=== PATIENT | male | born 1940 | race Caucasian/White ===

== ENCOUNTER 2017-05-13 06:47 | Inpatient (IN) | payer OTHER ==
[2017-05-12 11:16] LABS: HEMOGLOBIN 15.7 gm/dL (14.0-18.0); MCH 30.8 pg (26.0-34.0); MCHC 34.1 g/dL (28.0-37.0); MCV 90.4 fL (80.0-100.0); RBC 5.08 mil/uL (4.50-6.00); RDW 15.1 % (10.5-14.5); URINE BILIRUBIN NEGATIVE (Negative); URINE BLOOD NEGATIVE (Negative); URINE COLOR YELLOW; URINE GLUCOSE-RANDOM* NEGATIVE (Negative); URINE KETONES NEGATIVE (Negative); URINE LEUKOCYTES-REFLEX NEGATIVE (Negative); URINE PROTEIN (DIPSTICK) TRACE (Negative); WBC 7.9 thou/uL (4.0-11.0)
[2017-05-12 11:32] LABS: APTT 29.9 Seconds (24.5-32.8); PROTIME 10.3 Seconds (9.3-11.4)
[2017-05-12 11:35] LABS: CALCIUM 9.3 mg/dL (8.5-10.1); CREATININE 1.1 mg/dL (0.7-1.3); TOTAL BILIRUBIN 0.5 mg/dL (<0.1-1.0); TOTAL PROTEIN 7.3 g/dL (6.4-8.2)
[~2017-05-13] VITALS: Ht 172.7 cm; Wt 71.2 kg
--- NOTE | ~2017-05-13 | EKG ---
[address] [address] ELECTROCARDIOGRAM REPORT Name: ELIGIO MULLINS Room #: 244-P [facility] IN M.R.#: [id number] Admission: 05/13/17 Attend Phys: Sincere Owens MD Discharge: 05/14/17 Date of : 44 Report #: [id number] THIS REPORT FOR: //name// [facility] Test Date: 2017-05-12 Test Time: 10:38:02 Pat Name: ELIGIO MULLINS Department: Room: 244 Gender: M Paper Sorter: Dwayne NAVA : 1940 Requested By: Sincere Owens Order Number: [id number] : Tobi Sigala Measurements Intervals [place] Rate: 93 P: 64 W[place]: 150 QRS: -50 QRSD: 104 T: 72 QT: 345 QTc: 430 Interpretive Statements Sinus rhythm Left anterior fascicular block LVH with secondary repolarization abnormality Anterior ST elevation, probably due to LVH Compared to ECG 08/05/2011 17:25:57 Left anterior fascicular block now present Early repolarization now present ST (T wave) deviation now present Intraventricular conduction delay no longer present Electronically Signed On 05-18-2017 21:28:07 CDT by Tobi Sigala [email or web address] <ELECTRONICALLY SIGNED> By: Tobi Sigala MD 05/18/17 2128 1038 1038 Tobi Sigala MD /EPI
--- NOTE | ~2017-05-13 | O ---
[facility] [place] [address] OPERATIVE REPORT Name: ELIGIO MULLINS Room #: 244-P [facility] IN ..#: [id number] Admission: 05/13/17 Attend Phys: Sincere Owens MD Discharge: Date of : 42 Report #: [id number] THIS REPORT FOR: //name// CC: Carter Owens DATE OF SERVICE: 05/13/2017 PREOPERATIVE DIAGNOSIS: Left internal carotid artery stenosis, asymptomatic. FINAL DIAGNOSIS: Left internal carotid artery stenosis, asymptomatic. OPERATIVE PROCEDURE PERFORMED: Left internal carotid endarterectomy. SURGEON: Sincere Owens M.D. YARN WINDER: . ANESTHESIA: General. OPERATIVE INDICATIONS: The patient is a 77-year-old gentleman who presented with an asymptomatic left internal carotid artery stenosis. This stenosis was high-grade, approximately 80-90% by angiogram. The patient is admitted at this time now and for left internal carotid endarterectomy after informed consent has been obtained. The patient is asymptomatic. The procedure was performed for stroke risk reduction. OPERATIVE SUMMARY: The patient was brought to the operating room, placed on the OR table in supine position. After anesthesia was induced via the general endotracheal route and monitoring lines have been positioned, the patient was prepped and draped in sterile fashion with chlorhexidine. An oblique incision was made anterior to the sternocleidomastoid muscle. Dissection was carried down medial to the muscle. We identified the facial vein, ligated and divided it. We opened the carotid sheath and dissected free the common internal and external carotid arteries from surrounding tissues. The hypoglossal, vagus, and ansa cervicalis nerves were noted. Care was taken not to injure them during this procedure. The patient was given 10,000 units of intravenous heparin. Approximately 4 minutes later, we clamped the internal carotid artery, then the common and then the external carotid artery. The common carotid arteriotomy was made and extended up into the internal carotid artery. There was a high-grade stenosis with calcific plaque with hemorrhage into the wall of the plaque noted at the origin of the internal carotid artery. We then placed a 14-Puerto Rican shunt at the internal carotid artery with good backbleeding. We placed it into the common carotid artery and snared it down to the common carotid artery with a Rumel tourniquet. The plaque was then dissected from the vessel wall, it was amputated with Griffin scissors proximally. An eversion endarterectomy was [address] [address] OPERATIVE REPORT Name: ELIGIO MULLINS Room #: 244-P [facility] IN .R.#: [id number] Admission: 05/13/17 Attend Phys: Sincere Owens MD Discharge: Date of : 42 Report #: [id number] performed of the external carotid artery and good tapering was noted of the internal carotid artery. All loose fronds were debrided from the vessel wall under loupe magnification and saline irrigation. Once this was completed, the vessel was closed primarily with 6-0 Prolene suture. Prior to completing closure, the shunt was clamped, cut and removed. The site was flushed both retrograde and antegrade and just prior to completing closure was de-aired by releasing the clamp on the external carotid artery. After completing closure, the common carotid clamp was released and then the internal clamp was released. Protamine was given to reverse the heparin. Doppler signals were present and biphasic at all sites, the common, internal and external carotid sites. Once adequate hemostasis was achieved, the wound was closed in multiple layers with absorbable suture. The procedure was completed. The patient was taken to the postanesthesia care unit in stable condition. Neurologic examination is pending at the time of this dictation. <ELECTRONICALLY SIGNED> By: Sincere Owens MD 05/14/17 0933 1538 1602 Sincere Owens MD /nt
[~2017-05-13 06:47] MED LIST: ALLOPURINOL 10100 M2; ASPIRIN EC81 M1 PO; B-100 COMPLEX1 EACH PO; CORGARD PO; EZETIMIBE PO; KLOR-CON M2020 MEQ PO; LIPITOR40 MG PO; MEGARED PLANT-300 MG PO; MULTIVITAMINS PO; NADOLOL 80 MG; NIFEDICAL XL30 MG PO; NITROSTAT0.4 MG SL; PANTOPRAZOLE SO40 M1 PO; PREDNISONE 10 M10 M1; PROAIR HFA8.5 GM IH; SWISH AND SWALLOW PO; SYMBICORT160 MCG/4. IH; TOPAMAX100 MG PO; VALCYTE450 MG; ZETIA10 MG PO; [UNRECOGNIZED DRUG - OTHER]; [UNRECOGNIZED DRUG - OTHER] PO
[2017-05-13 11:00] VITALS: BP 151/88
[2017-05-14] VITALS (8 sets, daily range): BP systolic 89–126; BP diastolic 58–83
[2017-05-14 05:17] LABS: HEMATOCRIT 41.4 % (42.0-52.0); HEMOGLOBIN 13.8 gm/dL (14.0-18.0); MCH 30.7 pg (26.0-34.0); MCHC 33.4 g/dL (28.0-37.0); MCV 91.9 fL (80.0-100.0); RBC 4.51 mil/uL (4.50-6.00); RDW 15.1 % (10.5-14.5); WBC 9.9 thou/uL (4.0-11.0)
[2017-05-14 05:30] LABS: CALCIUM 8.8 mg/dL (8.5-10.1); POTASSIUM 4.7 mmol/L (3.5-5.1)
[2017-05-14] MEDS ORDERED: ASPIRIN325 PO (13:18)
== END 2017-05-14 17:40 | disposition home or self-care (01) | DRG 39 ==
LOC: TBA 06:47 → ICU 06:47 → PRE 06:49 → ICU 17:23
PROVIDERS: Nurse Practitioner; Thoracic Surgery (Cardiothoracic Vascular Surgery)
PROC: 03CK0ZZ Extirpation of Matter from Right Internal Carotid Artery, Open Approach (ICD-10-PCS; principal; 2017-05-13)
DX: I65.21 Occlusion and stenosis of right carotid artery (principal); I10 Essential (primary) hypertension; E78.00 Pure hypercholesterolemia, unspecified; I95.9 Hypotension, unspecified; I25.10 Atherosclerotic heart disease of native coronary artery without angina pectoris; E78.5 Hyperlipidemia, unspecified; J44.9 Chronic obstructive pulmonary disease, unspecified; I73.9 Peripheral vascular disease, unspecified; R00.1 Bradycardia, unspecified; Z90.49 Acquired absence of other specified parts of digestive tract; Z82.49 Family history of ischemic heart disease and other diseases of the circulatory system
CPT/HCPCS: 10204; 50010; 50101; 50386; 50417; 50455; 51301; 56524; 56526; 56527; 56528; 56534; 62110; 62900; 64029; 65020; 65040; 65043; 70005

== ENCOUNTER 2019-05-27 19:55 | Inpatient (IN) | payer OTHER ==
[~2019-05-27] VITALS: Ht 152.4 cm; Wt 70.8 kg
[~2019-05-27 19:55] MED LIST changes: +ASPIRIN325 PO
[2019-05-27 19:56] VITALS: BP 119/78
[2019-05-27 20:12] LABS: BE(vivo) -5.4 mmol/L (-2 to +3); HCO3 16.8 mmol/L (22.0-26.0); pH 7.465 (7.360-7.450)
[2019-05-27 20:15] LABS: PCO2 23.9 mmHg (35.0-45.0)
--- NOTE | 2019-05-27 20:21 | NUR ---
XRAY AT BEDSIDE
[2019-05-27 20:24] LABS: HEMOGLOBIN 9.6 gm/dL (14.0-18.0); RBC 2.81 mil/uL (4.50-6.00)
[2019-05-27] MEDS ORDERED: ZOVIRAX800 MG PO (20:24)
[2019-05-27] MEDS ORDERED: TYLENOL EXTRA500 MG PO (20:25)
[2019-05-27] MEDS ORDERED: VITAMINC500 PO (20:25)
[2019-05-27 20:26] LABS: MCH 34.2 pg (26.0-34.0); MCHC 34.4 g/dL (28.0-37.0); MCV 99.5 fL (80.0-100.0); RDW 29.8 % (10.5-14.5)
[2019-05-27] MEDS ORDERED: BREO ELLIPTA 11 EACH INH (20:26)
[2019-05-27] MEDS ORDERED: DAPSONE100 MG PO (20:26)
[2019-05-27] MEDS ORDERED: DEXAMETHASONE 44 M1 PO (20:30)
[2019-05-27 20:31] LABS: WBC 1.2 thou/uL (4.0-11.0)
[2019-05-27] MEDS ORDERED: IRON325 PO (20:31)
[2019-05-27] MEDS ORDERED: FLOMAX0.4 MG PO (20:31)
[2019-05-27] MEDS ORDERED: GABAPENTIN 100100 MG PO (20:32)
[2019-05-27] MEDS ORDERED: MUCUS ER600 M1 PO (20:33)
[2019-05-27] MEDS ORDERED: MELATONIN5 M1 PO (20:34)
[2019-05-27] MEDS ORDERED: IPRATROPIU0.2 MG/1 M INH ×2 (20:34)
[2019-05-27 20:35] LABS: ANION GAP 13 mmol/L (7-16); BUN 25 mg/dL (7-18); CALCIUM 8.8 mg/dL (8.5-10.1); CHLORIDE 104 mmol/L (98-107); CO2 20 mmol/L (21-32); CREATININE 1.3 mg/dL (0.7-1.3); GLUCOSE 245 mg/dL (74-106); POTASSIUM 3.3 mmol/L (3.5-5.1); SODIUM 137 mmol/L (136-145)
[2019-05-27] MEDS ORDERED: NICOTINE TRANSD21 M1 (20:35)
[2019-05-27] MEDS ORDERED: PROAIR HFA8.5 GM INH (20:36)
[2019-05-27] MEDS ORDERED: SYMBICORT160 MCG/4. INH (20:36)
[2019-05-27] MEDS ORDERED: TOPAMAX 100 MG100 MG PO (20:37)
[2019-05-27] MEDS ORDERED: TYLENOL325 M1 PO (20:37)
--- NOTE | 2019-05-27 20:38 | NUR ---
PATIENT LIVES AT [facility] AND [facility] FOR POST-ACUTE TREATMENT OF THROMBOCYTOPENIA, ACUTE RESPIRATORY FAILURE AND COPD. PER EMS REPORT AND [facility] SBAR: INCREASED RESPIRATIONS AND TREMORS THAT STARTED ON 05/27/19 AND HAVE PROGRESSIVELY WORSENED OVER THE LAST FEW HOURS. NH REPORTS RESPIRATIONS OF 52/MINUTE, PULSE 87, BP 117/68, TEMP 98.8, O2 77% ON NASAL CANNULA (AMOUNT OF OXYGEN WAS NOT LISTED). PER , PATIENT WAS TAKEN TO [facility] FOR BLOOD TRANSFUSION ON 05/25/19 - INSTEAD OF OUTPATIENT, HE WAS ADMITTED. RECEIVED 2 UNITS OF PRBC AND 1 UNIT OF PLATELETS - COMPLETED AFTERNOON OF 05/26/19. WAS DISCHARGED BACK TO ASSISTED. AT THAT TIME, PATIENT'S REPORTS THAT PATIENT IS NORMALLY ALERT AND ORIENTED X 3 AND ABLE TO WALK. REPORTS THAT HE HAS BEEN WEAKER AND NOT FEELING WELL SINCE HIS DISCHARGE YESTERDAY.
[2019-05-27 20:45] LABS: ALBUMIN 2.5 g/dL (3.4-5.0); DIRECT BILIRUBIN 0.3 mg/dL (<0.1-0.3); SGOT 22 U/L (15-37); SGPT 46 U/L (30-65); TOTAL BILIRUBIN 0.7 mg/dL (<0.1-1.0); TROPONIN-I <0.06 ng/mL (<0.06)
--- NOTE | 2019-05-27 20:52 | NUR ---
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 PATIENT WAS SCHEDULED FOR NEXT DOSE OF CHEMO ON 05/18 AND WAS NOT ABLE TO RECEIVE DUE TO DECLINING STATUS.
--- NOTE | 2019-05-27 21:00 | NUR ---
PATIENT IS TAKING CURRENT DOSE OF ACYCLOVIR AND PREDNISONE TO TREAT HEMOPHAGOCYTIC LYMPHOHISTIOCYTOSIS (HLH) - PER
[2019-05-27 21:10] LABS: ABSOLUTE NEUTROPHILS 0.6 thou/uL (1.4-8.2); ATYPICAL LYMPHS 1 %; NUCLEATED RBCS 2 /100WBC
[2019-05-27 21:10] LABS: URINE BILIRUBIN NEGATIVE (Negative); URINE BLOOD NEGATIVE (Negative); URINE CLARITY CLEAR; URINE COLOR YELLOW; URINE GLUCOSE-RANDOM* 2+ (Negative); URINE KETONES NEGATIVE (Negative); URINE LEUKOCYTES-REFLEX NEGATIVE (Negative); URINE NITRITE-REFLEX NEGATIVE (Negative); URINE PROTEIN (DIPSTICK) 1+ (Negative)
[2019-05-27 21:11] LABS: ANISOCYTOSIS 2+; POLYCHROMASIA OCCASIONAL
[2019-05-27 21:12] LABS: HYPOCHROMASIA SLIGHT; MACROCYTES SLIGHT
[2019-05-27 21:15] LABS: PLATELET COUNT 25 thou/uL (150-400)
[2019-05-27 21:30] LABS: CASTS None Seen /LPF (None Seen); CRYSTALS None Seen /LPF (None Seen); SQUAMOUS 0-3 Few /LPF (0-3); URINE RBC None Seen /HPF (0-2); URINE WBC-REFLEX 0-5 Rare /HPF (0-5)
[2019-05-27 21:31] LABS: BACTERIA-REFLEX 1-9 Few /HPF (None Seen)
--- NOTE | 2019-05-27 22:04 | NUR ---
DR. HARO TO BEDSIDE. BLOOD PRESSURE CURRENTLY 83/58, RR 31, HR 135, 97% O2 AFTER BEING PLACED ON BIPAP PER REQUEST TO REDUCE WORK OF BREATHING. RT AT BEDSIDE AT THIS TIME. BIPAP SETTINGS RR 14, 02 100%. NEW ORDERS RECEIVED.
--- NOTE | 2019-05-27 22:44 | NUR ---
RT AT BEDSIDE TO DRAW REPEAT ABG. PATIENT INCONTINENT OF STOOL. LARGE, SOFT BM. CLEANED AND REPOSITIONED FOR COMFORT. COCCYX AREA RED AND EXCORIATED. BARRIER CREAM APPLIED. AT BEDSIDE
[2019-05-27 22:57] LABS: BE(vivo) -6.2 mmol/L (-2 to +3); PCO2 30.7 mmHg (35.0-45.0); PO2 372.5 mmHg (80.0-100.0); pH 7.385 (7.360-7.450); sO2 99.8 % (92.0-98.0)
[2019-05-27 23:49] VITALS: BP 98/61
--- NOTE | 2019-05-27 23:59 | NUR ---
SENT HANDOFF REPORT
[2019-05-28] VITALS (83 sets, daily range): BP systolic 78–122; BP diastolic 34–77
--- NOTE | 2019-05-28 00:52 | NUR ---
TRIED TO CALL REPORT TO ICU WAS TOLD THE NURSE WAS NOT AVAILABLE AT THIS TIME
--- NOTE | 2019-05-28 01:10 | NUR ---
GAVE REPORT TO NADYA RODRIGUEZ IN ICU
--- NOTE | 2019-05-28 06:43 | NUR ---
PATIENT ARRIVED TO THE UNIT FROM THE ED AT APPROXIMATELY 0130. PATIENT ON BIPAP AND VERY TACHYPNIC WITH RR IN THE 40'S. PATIENT IS ORIENTED TO SELF AND SITUATION. PATIENT PLACED ON NEUTROPENIC PRECAUTIONS D/T WBC AT 1.2 AND ALSO PLACED ON SPECIAL CONTACT TO R/O C-DIFF. PATIENT HAS HAD FREQUENT LOOSE, FOUL SMELLING STOOLS AND IS EXCORIATED PERIANALLY. PATIENT HAD LOW-GRADE TEMP WHEN ARRIVING BUT TRENDED DOWN. BP HAS BEEN SOFT BUT MAP REMAINED MOSTLY GREATER THAN 60. PATIENT MONITORED CLOSELY THROUGHOUT THIS SHIFT.
--- NOTE | 2019-05-28 10:22 | NUR ---
Nutrition: pt seen due to dx septic shock however no longer on sepsis protocol per ICU rounds. Admit with neutropenia, fever. Hx lymphoma. On mechanically altered nectar thick liquids diet and was eagerly eating breakfast during visit. Nearly 100% consumed. Pt states appetite is pretty good and voices no weight loss. Orbital wasting. Bedscale weight down 9# from reported UBW. Follow trends for accuracy. Viola anal excoriation documented due to loose stools. Will offer Ensure pudding daily. On MVI, ascorbic acid and ferrous sulfate supplementation. Place as low risk for now.
--- NOTE | 2019-05-28 11:45 | NUR ---
VASCULAR ACCESS NOTE ORDER VERIFIED FOR PICC PLACEMENT. PATIENT CONSENTED TO PROCEDURE. L BASILIC VEIN WIDELY PATENT. PATIENT PREPPED WITH STANDARD STERILE CONDITIONS. LIDOCAINE 1% 3ML GIVEN SUB Q. VEIN CANNULATED WITH ONE ATTEMPT. GUIDEWIRE ADVANCED EASILY. VEIN DILATED. GUIDEWIRE REMOVED INTACT. 5Fr TL PICC TRIMMED TO 45CM. LINE ADVANCED EASILY. LINE ADVANCED TO 41CM INTERNAL AND 4CM EXTERNAL. LINE FLUSHES AND DRAWS EASILY. CXR VERIFICATION FOR PLACEMENT. LINE RELEASED FOR IMMEDIATE USE TO RN. PATIENT TOLERATED PROCEDURE WELL.
[2019-05-28 12:13] LABS: HEMOGLOBIN 8.1 gm/dL (14.0-18.0); MCHC 33.2 g/dL (28.0-37.0); RDW 29.8 % (10.5-14.5)
[2019-05-28 12:14] LABS: HEMATOCRIT 24.3 % (42.0-52.0); MCH 33.9 pg (26.0-34.0); MCV 102.1 fL (80.0-100.0); RBC 2.38 mil/uL (4.50-6.00)
[2019-05-28 12:18] LABS: CALCIUM 8.6 mg/dL (8.5-10.1); CREATININE 1.2 mg/dL (0.7-1.3); MAGNESIUM 2.9 mg/dL (1.8-2.4)
[2019-05-28 12:20] LABS: POTASSIUM 4.3 mmol/L (3.5-5.1)
--- NOTE | 2019-05-28 13:58 | NUR ---
CM ASSESSMENT: CASE OPENED [place] DC PLANNING. CLINICAL INFO REVIEWED. PT ADMITS WITH SEPSIS AND RESP FAILURE, REQUIRING BIPAP 70 % FIO2. PT WITH BIPAP MASK ON AND SLEEPING AT TIME OF ASSESSMENT. CALLED SPOUSE AILYN [phone], LEFT WITH CM CONTACT # AND INTRODUCTION TO CM ROLE. PT CHART WITH FACESHEET FROM [facility] AND VM LEFT FOR FACILITY ADMISSIONS AND DC CUTTER GRINDER TO FAX CLINICAL. SPOKE WITH NURSE CARING FOR PT AT FACILITY. PT THERE DOING SKILLED REHAB SINCE 04/26/19 AFTER DC FROM [facility]. HAS BEEN NON AMBULATORY AND COULD TRANSFER WITH ASSIST OF 1 PRIOR TO RECENT ADMIT TO [facility]. SINCE RETURNING TO SKILLED REHAB, HAS BEEN MAX ASSIST OF 2 FOR TRANSFERS AND DEPENDENT FOR ADLS. FEEDS SELF WITH SET UP. HX LYMPHOMA WITH Q8 WEEK TREATMENTS AND ACCORDING TO DR. ASTUDILLO'S NOTE, HAS BEEN TOO DEBILITATED FOR TREATMENT. WILL FOLLOW TO SPEAK WITH PT AND /OR SPOUSE AND ASSIST WITH COORDINATION OF DC NEEDS. RETURN TO SKILLED REHAB VS OTHER.
--- NOTE | 2019-05-28 14:12 | EKG ---
[address] [place] [address] ELECTROCARDIOGRAM REPORT Name: ELIGIO MULLINS Room #: 241-P ADM IN M.R.#: [id number] Admission: 05/27/19 Attend Phys: Santiago Perez MD Discharge: Date of : 42 Report #: [id number] THIS REPORT FOR: //name// [facility] ED Test Date: 2019-05-27 Test Time: 20:02:09 Pat Name: ELIGIO MULLINS Department: Room: 241 Gender: M Technology Strategist: ALEXANDRA : 1940 Requested By: Bella Jules Order Number: [id number] MD: Lee Blake Measurements Intervals [place] Rate: 139 P: 71 VA: 134 QRS: -37 QRSD: 99 T: 101 QT: 289 QTc: 440 Interpretive Statements Sinus tachycardia Atrial premature complex Left axis deviation Nonspecific intraventricular conduction delay Compared to ECG 05/12/2017 10:38:02 Atrial premature complex(es) now present Electronically Signed On 05-28-2019 14:11:44 CDT by Lee Blake [email or web address] <ELECTRONICALLY SIGNED> By: Lee Blake MD, [facility] 05/28/19 1411 01 01 Lee Blake MD, [facility] /EPI
--- NOTE | 2019-05-28 20:31 | NUR ---
1800-Shift notes Pt has been alert, oriented x 4. On & off bi-pap and NC w/ 5- 6L of oxygen. Pt has tolerated NC w/o distress. Pt's sat was 95 to 98% on NC. Pt has been fed food, soft-mechanical, hear-healthy diet. Pt has had severe tremors on UE, eugene, could not feed himself well. This nurse assisted pt for breakfast and lunch. Pt has had small BM X 3 during this nurse's shift, soft not loose. Pt has had PICC line due to pressor. This nurse initiated pressor around 1013 at 0.5mcg then titrated to 1.5 at 1445. Pt's platelet was down to [address] Perez. Dr. Perez ordered platelet at the end of shift. Pt's spouse called this nurse for update then visited this evening.
[2019-05-29] VITALS (71 sets, daily range): BP systolic 75–145; BP diastolic 31–82
[2019-05-29 04:07] LABS: GLYCOHEMOGLOBIN (HGB A1C) 5.6 % (4.8-5.6)
--- NOTE | 2019-05-29 04:43 | NUR ---
PT RESTING IN BED. SR/ST ON MONITOR. PT HAS BEEN ON BIPAP AT 60% FIO2 MAJORITY OF SHIFT SATS CURRENTLY 99% PT CONTINUES WITH MAINTENANCE IVFs. RECEIVED ONE UNIT OF PLATELETS DURING MY SHIFT AND TOLERATED. PT ON VERY LOW DOSE OF LEVOPHED BUT WILL TRY TO TURN IT OFF AND MONITOR. AM LABS TO BE DRAWN AND REVIEWED.
[2019-05-29 05:35] LABS: HEMATOCRIT 21.9 % (42.0-52.0); HEMOGLOBIN 7.2 gm/dL (14.0-18.0); RBC 2.14 mil/uL (4.50-6.00); WBC 2.8 thou/uL (4.0-11.0)
[2019-05-29 05:37] LABS: MCH 33.9 pg (26.0-34.0); MCV 102.7 fL (80.0-100.0); PLATELET COUNT 36 thou/uL (150-400); RDW 29.3 % (10.5-14.5)
[2019-05-29 05:39] LABS: POTASSIUM 3.5 mmol/L (3.5-5.1)
[2019-05-29 07:08] LABS: ABSOLUTE NEUTROPHILS 2.2 thou/uL (1.4-8.2); ANISOCYTOSIS 2+; MACROCYTES 1+; METAMYELOCYTES 2 %
[2019-05-29 07:09] LABS: HYPOCHROMASIA SLIGHT
[2019-05-29 13:18] LABS: BE(vivo) -8.9 mmol/L (-2 to +3); HCO3 14.8 mmol/L (22.0-26.0); PO2 297.9 mmHg (80.0-100.0); pH 7.404 (7.360-7.450); sO2 99.7 % (92.0-98.0)
[2019-05-29 13:19] LABS: PCO2 24.2 mmHg (35.0-45.0)
[2019-05-29 17:40] LABS: BE(vivo) -7.7 mmol/L (-2 to +3); HCO3 15.5 mmol/L (22.0-26.0); PO2 182.4 mmHg (80.0-100.0); pH 7.429 (7.360-7.450); sO2 99.3 % (92.0-98.0)
[2019-05-29 17:41] LABS: PCO2 23.9 mmHg (35.0-45.0)
--- NOTE | 2019-05-29 17:47 | NUR ---
1200 PT INCREASED BREATHING WORKLOAD AFTER IPV TREATMENT, BIPAP APPLIED, RESP RATE 40-50'S, OXYGEN SAT 99%, BP STABLE, DR. HERMAN PAGED TO UPDATE ON STATUS. 1230 BLOOD GAS RESULTS CALLED TO BATSHEVA, ORDERS RECIEVED. WILL CONTINUE TO MONITOR.
--- NOTE | 2019-05-29 17:52 | NUR ---
PT REMAINED ON BIPAP THROUGHOUT DAY, PT REMAINS ALERT AND ORIENTED AND WANTS CONTINUOUS AGGRESSIVE CARE. WHEN PT ASKED IF HE WOULD WANT TO BE PLACED ON VENTILATOR IF HE NEEDED IT, HE RESPONDED, "IF I NEED IT TO LIVE, I WANT IT." WILL MONITOR CLOSELY.
[2019-05-29 18:53] LABS: HEMOGLOBIN 8.2 gm/dL (14.0-18.0)
[2019-05-29 18:54] LABS: HEMATOCRIT 24.1 % (42.0-52.0)
[2019-05-30] VITALS (24 sets, daily range): BP systolic 94–143; BP diastolic 61–90
--- NOTE | 2019-05-30 05:03 | NUR ---
PT IN BED SLEEP OFF AND ON TONIGHT. PT SR/ST ON MONITOR WITH SOME PVCs/PACs. PT CONTINUES ON BICARB GTT. PT REMAINS ON BIPAP AT 40% WITH IPV TX. PT HAS HAD EPISODES TONIGHT WHERE HE IS BREATHING IN THE 30-40s AND ENCOURAGED TO SLOW BREATHING DOWN, NOT VERY RECEPTIVE TO INSTRUCTIONS. PT ABLE TO COUGH AND THEN RR SEEMS TO NORMALIZE. PT CONTINUES TO NOT WANT TO BE ELECTIVELY INTUBATED. HE DOES APPEAR TO BE FATIGUED BUT ABLE TO ASSIST WITH TURNS FOR CLEANING HIM AFTER HIS BMs. AM LABS TO BE DRAWN AND REVIEWED.
[2019-05-30 05:33] LABS: HEMOGLOBIN 8.2 gm/dL (14.0-18.0); PLATELET COUNT 30 thou/uL (150-400); WBC 3.4 thou/uL (4.0-11.0)
[2019-05-30 05:34] LABS: HEMATOCRIT 24.7 % (42.0-52.0); MCH 32.9 pg (26.0-34.0); MCHC 33.4 g/dL (28.0-37.0); MCV 98.5 fL (80.0-100.0); RDW 29.2 % (10.5-14.5)
[2019-05-30 05:41] LABS: CALCIUM 8.3 mg/dL (8.5-10.1); CREATININE 1.1 mg/dL (0.7-1.3); MAGNESIUM 1.9 mg/dL (1.8-2.4)
--- NOTE | 2019-05-30 15:37 | HC ---
[facility] [place] [address] CONSULTATION Name: ELIGIO MULLINS Room #: 241-P ADM IN M.R.#: [id number] Admission: 05/27/19 Attend Phys: Santiago Perez MD Discharge: Date of : 42 Report #: [id number] THIS REPORT FOR: //name// CC: Santiago Gomez This note is to Dr. Broussard. REASON FOR CONSULTATION: History of lymphoma and pancytopenia. HISTORY OF PRESENT ILLNESS: The patient is a 79-year-old gentleman whom I had seen in the past with history of non-Hodgkin's lymphoma, who required a transplant, but I have not seen for over a year. Unfortunately, he cannot tell me the names of his doctors or his diagnosis. I tried calling his , it went to [employer] which said that it does not work, not to leave a message, tried calling the daughter who answered the phone, but did not know information and said that she just talk with her mother. I called the mother soon again and again, no answer. I have now left the message on the chart and asked the nurse to try to get the names of the patient's treating cancer doctors from the patient's family and obtain records from the chart, so we can have a better understanding of his history of pancytopenia and his lymphoma. The patient reportedly had a history of transfusion, recently became short of breath and weak, had resides in assisted living and was brought to the hospital because he has been declining since then. He has not been home since April. He supposedly has a diagnosis of something called CS-30, which I do not recognize and he received some infusions, but I am not sure what that refers to. PAST MEDICAL HISTORY: Notable for the history of lymphoma in 2010, had a bone marrow transplantin 2011, and was then in remission. Then, in 2016, he had a non-Hodgkin's lymphoma again, had chemo for 8 weeks. 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 He also has a history of COPD and also some vasectomy and an appendectomy. Outside physicians include Dr. Jae Rodriguez and Dr. Markus Ruff. Sleep apnea. PHYSICAL EXAMINATION: GENERAL: The patient appears stated age. Weight is 146 pounds, 66.2 kilograms, height is 5 feet 7 inches or I believe it is 152 cm what they collect that, blood pressure 91/56, O2 sat 98%, pulse 101, temperature 98.8. He was originally not very responsive on CPAP, then he was able to wake up. He answered a few questions, but he has a very dry mouth and does not seem to know much information about his diagnosis and current health situation. LUNGS: Have some slight rhonchi that clear with cough. HEART: Appears regular rate. [facility] [address] [place] [address] CONSULTATION Name: ELIGIO MULLINS Room #: 241-P [facility] IN M.R.#: [id number] Admission: 05/27/19 Attend Phys: Santiago Perez MD Discharge: Date of : 42 Report #: [id number] ABDOMEN: No masses. LYMPHATICS: No enlarged lymph nodes in supraclavicular or cervical region. LABORATORY DATA: Here is notable for creatinine of 1.3, AST 22, total bilirubin 0.7. White count of 1.2, hemoglobin 9.6, platelets of 25. Differential had 43 bands, 49% lymphocytes, 4 monocytes, 2.2 eosinophils, 0.9 basos. ASSESSMENT AND PLAN: 1. Pancytopenia, may be related to bone marrow disorder. I do not have records. The patient cannot provide information. Family not available. We will ask the nurses to talk with family and get records. I agree with current plans to transfuse to keep hemoglobin above 7, platelets above 15 or 20, less bleeding, white count, neutropenic precautions, antibiotics. 2. Sleep apnea. BiPAP. 2a. 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 will check with office and Dr. Rodriguez for addtional information and clarification. histio 3. Chronic obstructive pulmonary disease, inhalation. Medicines per others. 4. Hyperlipidemia, statins as per others. 5. Prognosis is probably poor to guarded. Need to get clarification of the patient's diagnosis. MEDICATIONS: Currently Include levofloxacin, melatonin, topiramate 100 daily, nicotine 21 mg patch, guaifenesin 600 b.i.d., gabapentin 100 t.i.d., tamsulosin 0.4 daily, iron sulfate 325 b.i.d., vitamin C 500 b.i.d., multivitamins daily, insulin sliding scale, hydrocortisone 100 mg q.8, Zosyn 3.375 q. 8, ipratropium and albuterol inhalation therapy, norepinephrine drip as needed. We will follow with you. <ELECTRONICALLY SIGNED> By: Neel Black MD 05/30/19 1537 0822 1006 Neel Black MD /nick
[2019-05-31] VITALS (21 sets, daily range): BP systolic 112–141; BP diastolic 70–89
--- NOTE | 2019-05-31 07:30 | NUR ---
END OF SHIFT SUMMARY: Pt titrated from 4 L to 2 L nasal canula over this shift. Able to sleep through most of shift. Incontinent of moderate amount soft unformed brown stool x1. Skin integrity remains intact.
[2019-05-31 08:16] LABS: MCV 97.5 fL (80.0-100.0); WBC 2.9 thou/uL (4.0-11.0)
[2019-05-31 08:18] LABS: CALCIUM 8.3 mg/dL (8.5-10.1); CREATININE 1.3 mg/dL (0.7-1.3); HEMATOCRIT 25.7 % (42.0-52.0); HEMOGLOBIN 8.7 gm/dL (14.0-18.0); MCH 33.2 pg (26.0-34.0); MCHC 34.1 g/dL (28.0-37.0); RBC 2.63 mil/uL (4.50-6.00); RDW 27.4 % (10.5-14.5)
--- NOTE | 2019-05-31 15:22 | NUR ---
PT RESIDES AT [facility] FAXED CLINICALE UPDATE TO FACILITY SPOKE WITH SUNG IN ADM SHE RECEIVED UPDATE. DCP TO FOLLOW.
[2019-06-01] VITALS (11 sets, daily range): BP systolic 118–158; BP diastolic 62–98
--- NOTE | 2019-06-01 02:29 | NUR ---
REVIEWED ORDER MESSAGE FROM DR ÁLVAREZ REGARDING PT'S CODE STATUS. PT STATED HE WAS ONLY ABLE TO TALK TO HIS FOR A SHORT TIME YESTERDAY REGARDING CODE STATUS AND POC. PT WANTS TO DISCUSS FURTHER WITH BEFORE MAKING A DECISION.
--- NOTE | 2019-06-01 05:00 | NUR ---
ASSUMED PT CARE AROUND 1900. A&OX2-3, FORGETFUL. DENIES ANY PAIN. PT SLEPT MOST OF THE NIGHT. RESP EVEN AND UNLABORED. VSS. REPOSITIONED TO PREVENT SKIN BREAKDOWN. JOHNSON TO DD WITH ADEQUATE URINE OUTPUT. NO MAJOR COMPLAINTS THIS SHIFT. FALL PRECAUTIONS IN PLACE. PROGRESSING SLOWLY TOWARD POC GOALS. WILL CONTINUE TO MONITOR FURTHER.
--- NOTE | 2019-06-01 06:46 | NUR ---
RECEIVED REPORT FROM BABYSITTER NATALIE AT 0615. PT TRANSPORTED BY BED WITH TRANSPORT MONITOR AND 2L O2. IN STABLE CONDITION BY TRANSPORT TO ROOM 364. PLACED ON HEART MONITOR, 2L O2 ELIZABETH CHRISTIE TO DEPENDENT DRAINAGE. IV ABX INFUSING TO LEFT PICC. NO OTHER CONCERNS, WILL CONTINUE TO MONITOR.
--- NOTE | 2019-06-01 06:51 | NUR ---
REPORT CALLED TO RN ON 3W. PT TRANSFERED TO CCT UNIT AROUND 0630. ALL BELONGINGS SENT WITH PT. PT'S CALLED TO BE NOTIFIED OF PT TRANSFER TO NEW ROOM.
[2019-06-01 09:32] LABS: HEMATOCRIT 28.9 % (42.0-52.0); HEMOGLOBIN 9.9 gm/dL (14.0-18.0); MCH 33.4 pg (26.0-34.0); MCHC 34.2 g/dL (28.0-37.0); MCV 97.5 fL (80.0-100.0); RBC 2.96 mil/uL (4.50-6.00); RDW 27.6 % (10.5-14.5); WBC 3.2 thou/uL (4.0-11.0)
[2019-06-01 09:43] LABS: ALBUMIN 1.5 g/dL (3.4-5.0); CALCIUM 6.5 mg/dL (8.5-10.1); TOTAL BILIRUBIN 0.4 mg/dL (<0.1-1.0); TOTAL PROTEIN 3.7 g/dL (6.4-8.2)
[2019-06-01 10:02] LABS: POTASSIUM 2.5 mmol/L (3.5-5.1)
[2019-06-01 12:08] LABS: HEMATOLOGY COMMENTS Note: (()); HEMOGLOBIN 8.1 g/dL (13.0-17.7)
[2019-06-01 13:53] LABS: ABSOLUTE NEUTROPHILS 2.8 thou/uL (1.4-8.2)
--- NOTE | 2019-06-01 15:56 | NUR ---
FALL PREC IN PLACE...WORKING WITH PT/OT/ST TODAY...UP WITH WALKER.GAIT BELT/O2 NEEDS TO BE REMINDED TO STAND UP STRAIGHT..
[2019-06-02 05:04] LABS: HEMOGLOBIN 8.9 gm/dL (14.0-18.0); WBC 3.2 thou/uL (4.0-11.0)
[2019-06-02 05:09] LABS: HEMATOCRIT 26.3 % (42.0-52.0); MCH 33.7 pg (26.0-34.0); MCHC 33.8 g/dL (28.0-37.0); MCV 99.4 fL (80.0-100.0); RBC 2.64 mil/uL (4.50-6.00); RDW 27.5 % (10.5-14.5)
[2019-06-02 05:20] LABS: CALCIUM 8.3 mg/dL (8.5-10.1); CREATININE 1.2 mg/dL (0.7-1.3); MAGNESIUM 1.6 mg/dL (1.8-2.4)
[2019-06-02 05:23] LABS: POTASSIUM 4.1 mmol/L (3.5-5.1)
--- NOTE | 2019-06-02 06:31 | NUR ---
PLATELETS THIS AM CONSISTENT WITH PREVIOUS RESULTS.
--- NOTE | 2019-06-02 07:46 | NUR ---
PLATELETS 17 THIS AM, NOTED HEMATURIA EVEN AFTER LAYING STILL IN THE BED. NOTIFIED PROVIDER OF FINDINGS. DID NOT REMOVE THE PICC LINE AT THIS TIME.
[2019-06-02 07:47] VITALS: BP 154/98
[2019-06-02 10:11] VITALS: BP 128/84; BP 139/86
--- NOTE | 2019-06-02 10:49 | NUR ---
PATIENT SEEN BY NEO DIXON NP WITH DR. ALMENDAREZ. PATIENT IS NOT A CANDIDATE FOR ACUTE REHAB AT THIS TIME. PATIENT WOULD NOT BE ABLE TO TOLERATE THE REQUIRED AMOUNT OF THERAPY FOR AN ACUTE REHAB STAY. THANK YOU FOR THIS REFERRAL.
--- NOTE | 2019-06-02 12:17 | NUR ---
DISCHARGE PLANNING. CLINICAL UPDATES FAXED TO [facility]. CALL PLACED TO SUNG TO NOTIFY. FOLLOWING TO ASSIST WITH DISCHARGE NEEDS. FOLLOWING.
--- NOTE | 2019-06-02 13:30 | NUR ---
YANA reviewed chart and spoke with nursing and attending physician. Pt transferred to 3W from ICU and is slowly progressing towards goals for discharge. Hem/Onc sent message to YANA to request visit with Hospice. YANA received message from Prosper with [facility] regarding pt. YANA met with pt at bedside. Pt states that he is agreeable with doing either skilled at [facility] or considering hospice. YANA spoke with Prosper with [facility] via phone. Explained that pt and family have not yet decided on hospice. Prosper was given pt's info from Nakia at [facility]. YANA spoke with pt's via phone to provide update. Pt's stated she received call from Prosper and she is not interested in [facility]. Pt's states that she felt pressured to make a decision. [facility] is owned by [employer] who owns [facility]. Pt's states she would be open to meeting with Hospice or [facility] if recommended. Pt's mother in law currently private duty services through [employer]. Pt's states that if the physicians feel that pt can tolerate rehab in a SNF, they would want to consider SNF placement prior to considering hospice. [facility] and family making a decision about hosp[facility]. YANA explained that a referral will not be made to a hospice agency until there has been a decision made with pt and family. YANA updated nursing and attending physician. ID consulted today. service planner to send clinical/therapy updates to [facility] for review. YANA is follwoing to assist as needed with discharge planning.
[2019-06-02 15:44] VITALS: BP 151/92
--- NOTE | 2019-06-02 19:00 | NUR ---
THIS RN AND JESSENIA RN WERE IN ROOM AT SHIFT CHANGE AND SPOUSE STATED THAT PATIENT AND SHE HAD DECIDED TO BECOME A DNR. KARMA GUERRERO CALLED AND ORDERS OBTAINED..
--- NOTE | 2019-06-02 19:52 | NUR ---
DURING SHIFT REPORT WITH OFF-GOING DAY RN, PT'S STATED PT DID NOT WANT TO BE INTUBATED OR HAVE CHEST COMPRESSIONS; BOTH AND PT AGREED HE SHOULD BE CHANGED TO DNR STATUS. NOTIFIED OVERNIGHT NURSE PRACTIONER FAMILY PHYSICIAN.
[2019-06-02 20:11] VITALS: BP 153/97
[2019-06-03 05:25] VITALS: BP 141/83
[2019-06-03 05:34] LABS: HEMOGLOBIN 8.9 gm/dL (14.0-18.0)
[2019-06-03 05:36] LABS: HEMATOCRIT 26.1 % (42.0-52.0); MCH 33.9 pg (26.0-34.0); MCV 99.6 fL (80.0-100.0); RBC 2.62 mil/uL (4.50-6.00); RDW 27.3 % (10.5-14.5); WBC 4.9 thou/uL (4.0-11.0)
--- NOTE | 2019-06-03 07:49 | NUR ---
ASSUMED CARE AT 1900. PT WITH FLAT AFFECT, A&Ox2-3 AND SOMEWHAT DELAYED WITH RESPONSES. DENIES PAIN, NAUSEA, OR SOB. LUNG SOUNDS COARSE WITH SOME CRACKLES IN BASES, 2L O2 VIA NC. IV ABX GIVEN VIA PICC LINE. JOHNSON DRAINING LARGE AMOUNT OF DARK YELLOW AND BLOODY URINE, 1100 ML OUT OVERNIGHT. SR ON TELE. HS BLOOD SUGAR 240, GAVE 10 UNITS LISPRO. NO OTHER CONCERNS, SHIFT REPORT GIVEN AT 0700.
[2019-06-03 08:03] VITALS: BP 188/112
[2019-06-03 08:04] VITALS: BP 172/110
--- NOTE | 2019-06-03 11:19 | NUR ---
Followup: Lymphoma. Code status has been changed to DNR with pending decision for hospice vs other. Continues on modified diet as tolerated. Defer further nutrition reassessment unless consulted.
[2019-06-03 11:48] VITALS: BP 137/89
--- NOTE | 2019-06-03 15:19 | NUR ---
SW reviewed chart and spoke with nursing and attending physician. Pt's code status changed to DNR yesterday. SW spoke with pt's via phone to discuss discharge plan: SNF v. Hospice. Pt's is wanting pt to go to [facility] to try to get stronger, before considering hospice. SW explained need for insurance authorization for pt to return to SNF. Pt's verbalized understanding. conservation planner faxed clinical updates to [facility]. YANA is following to assist as needed with discharge planning.
[2019-06-03 15:58] VITALS: BP 149/96
[2019-06-03 19:15] VITALS: BP 139/86
--- NOTE | 2019-06-03 19:54 | HC ---
[facility] [place] [address] CONSULTATION Name: ELIGIO MULLINS Room #: 364-P [facility] IN M.R.#: [id number] Admission: 05/27/19 Attend Phys: Santiago Perez MD Discharge: Date of : 44 Report #: [id number] THIS REPORT FOR: //name// CC: Santiago Gomez DATE OF SERVICE: 06/02/2019 INFECTIOUS DISEASE CONSULTATION REASON FOR CONSULTATION: I was asked to evaluate concerning pneumonia in the setting of pancytopenia and lymphoma. HISTORY OF PRESENT ILLNESS: The patient is a 79-year-old who was admitted on 05/27/2019 with pulmonary infiltrates, respiratory failure. He has had issues with pancytopenia. He has recently, prior to his admission, received 2 units of blood transfusion. Prior to this, he was hospitalized with pneumonia and respiratory failure, required intubation and mechanical ventilation, first part of April. He has been on treatment for his B-cell lymphoma. Following his admission, he was placed on Levaquin and Zosyn. No positive cultures reported. He is now out of the Intensive Care Unit, uses BiPAP as needed and is on 3 liters of oxygen per nasal cannula. He remains markedly fatigued and having minimal sputum production. No pleuritic chest pain or hemoptysis. He also has an indwelling Rosario catheter, is having some blood in the urine. He remains thrombocytopenic with a platelet count of 17,000. He has been seen by Oncology who is debating about further treatment options. He was recommending palliative care. The patient, however, does not know much about this at this point. He did state to me and his that he did not wish to have cardiac resuscitation or be placed on the ventilator. ALLERGIES: None known. MEDICATIONS: As noted on his MAR, which were reviewed including Levaquin and Zosyn. PAST MEDICAL HISTORY: Appendectomy, vasectomy, cardiac catheterization with stents, hyperlipidemia, long-term smoker with COPD initially diagnosed with T-cell lymphoma, 2010. Now reports his B-cell lymphoma from previous bone marrow biopsy. Tonsillectomy, coronary artery disease, degenerative spine disease, Port-A-Cath in right chest. FAMILY HISTORY: Noncontributory. SOCIAL HISTORY: Smoker of cigarettes. No significant alcohol intake. He is . [address] [address] CONSULTATION Name: HARPREETELIGIO Lucille Room #: 364-P [facility] IN M.R.#: [id number] Admission: 05/27/19 Attend Phys: Santiago Perez MD Discharge: Date of : 44 Report #: [id number] REVIEW OF SYSTEMS: The patient has a Port-A-Cath in place. He has 3 liters of oxygen per nasal cannula. Indwelling Rosario catheter. No decubiti noted. He has had issues with peripheral edema. No rashes or ulcerations. No psychiatric issues or other neurologic decline other than confusional state given his acute presentation. Full 10-point review of systems was otherwise negative other than what is discussed above. PHYSICAL EXAMINATION: VITAL SIGNS: Afebrile and hemodynamically stable. GENERAL: He was sitting up in his chair on 3 liters of oxygen per nasal cannula. He had alopecia. SKIN: Without rash or decubitus. HEENT: Eyes, without scleral icterus. No peripheral adenopathy palpable. Mouth without mucositis. NECK: Supple. LUNGS: Decreased breath sounds in the bases bilaterally. HEART: Regular, without murmur, gallop or rub. ABDOMEN: Soft, without hepatosplenomegaly or mass. EXTREMITIES: With 2+ edema both lower extremities. Strength in both upper and lower extremities were symmetrical. He has overall generalized weakness. Sensation intact in upper and lower extremities. NEUROLOGIC: Mood was normal. He was hard of hearing. GENITORECTAL: Noted indwelling Rosario catheter without specific lesion. LABORATORY STUDIES: Hemoglobin 8.9, white count 3.2, platelet count 17,000. Creatinine 1.2. Sputum culture with yeast. Blood cultures are negative. Chest x-ray with mild elevation of left hemidiaphragm, bilateral interstitial opacities with patchy pneumonia, medial left lung base. IMPRESSION: 1. Diffuse large B-cell lymphoma, which appears end-stage. 2. Sepsis due to pneumonia. 3. Neutropenic fever. 4. Encephalopathy. 5. Chronic obstructive pulmonary disease. 6. Acute kidney injury. 7. Anemia and thrombocytopenia. 8. Transient methemoglobinemia due to dapsone, now resolved. RECOMMENDATIONS: We will continue current antibiotic program, pending final culture results. Before I make any significant changes, we will await Dr. Black's discussion with family regarding palliative care. <ELECTRONICALLY SIGNED> By: Clinton Ga MD 06/03/191953 04 8 lCinton Ga MD /nt
--- NOTE | 2019-06-03 19:55 | NUR ---
care of pt assumed this am @ ~0700. pt noted to be gentle spirit, soft spoken and slightly hard of hearing (listens to his tv w/ loud volume). pt verbalize that he felt tired today, attributing it to a poor night's sleep. pt w/ a fair appetite for food and fluid today. pt worked w/ pt and ot today and was up in his chair for lunch (~ 3-4 hours before requesting to go back to bed). pt w/ a bianchi that is draining, functional and w/o concerns. iv team requesting to know from dr. hernandez what platelets need to be at to dc the picc line tomorrow. no visitors today.
[2019-06-04 03:58] VITALS: BP 156/94
--- NOTE | 2019-06-04 05:56 | NUR ---
PATIENT ALERT AND ORIENTED X PERSON, PLACE AND SOMETIMES SITUATION. JOHNSON PATENT BLOOD TINGED URINE. UP TO BSC WITH ASSIST OF 2. HAS PICC IN [facility]. ACCUCHECK WAS 228, RECEIVED 10 UNITS OF LISPRO INSULIN. DENIED PAIN ALL NIGHT. SLEPT OFF AND ON DURING NIGHT.
[2019-06-04 07:27] VITALS: BP 162/97
[2019-06-04 09:41] LABS: WBC 6.8 thou/uL (4.0-11.0)
[2019-06-04 09:42] LABS: HEMATOCRIT 33.2 % (42.0-52.0); MCH 33.5 pg (26.0-34.0); MCHC 33.1 g/dL (28.0-37.0); MCV 101.1 fL (80.0-100.0); RBC 3.29 mil/uL (4.50-6.00); RDW 27.6 % (10.5-14.5)
[2019-06-04 10:27] LABS: ABSOLUTE NEUTROPHILS 5.6 thou/uL (1.4-8.2); PLATELET COUNT 41 thou/uL (150-400)
[2019-06-04 10:28] LABS: ANISOCYTOSIS 2+; PLATELET ESTIMATE DECREASED
[2019-06-04] MEDS ORDERED: LEVAQUIN 500 M500 M4 PO (11:13)
[2019-06-04] MEDS ORDERED: MAG6464 MG PO (11:14)
[2019-06-04] MEDS ORDERED: K-DUR 20 MEQ T20 MEQ PO (11:14)
[2019-06-04] MEDS ORDERED: [UNRECOGNIZED DRUG - CODE] IV PUSH (11:16)
[2019-06-04 11:18] VITALS: BP 136/89
[2019-06-04] MEDS ORDERED: PREDNISONE 10 M10 MG PO (11:39)
[2019-06-04 15:28] VITALS: BP 158/92
--- NOTE | 2019-06-04 16:54 | NUR ---
ASSUMED CARE OF PATIENT AT 0700. PRIMARY OBJECTIVE WITH PATIENT TODAY WAS DISCHARGE PENDING CLEARANCE WITH INSURANCE. PATIENT HAD BLOOD WORK, URINE CULTURES, AND NASOPHARYNGEAL SWAP/CULTURES. ONLY FINDING WAS INCREASED HEMOGLOBIN TO 11.
--- NOTE | 2019-06-04 17:37 | NUR ---
YANA reviewed chart and spoke with nursing and attending physician. Pt is medically stable for discharge to [facility] today. YANA updated Karo at [facility]. Authorization obtained late today. [facility] can admit pt tomorrow at 1000. Wheelchair van transportation to be arranged with [employer]. YANA met with pt and at bedside to provide update. Both are aware and agreeable with plan. manufacturing planner faxed discharge orders/summary to [facility]. Nursing updated as well. Chart will need to be copied. No additional SW needs identified at this time, but is available to assist should needs arise.
[2019-06-04 19:17] VITALS: BP 137/97
--- NOTE | 2019-06-05 01:38 | NUR ---
resting quietly tonight. he sat up in the chair until 2099. no complaints and he has been more cooperative. careplan reviewed. he is expecting to goback to his facility 06/05
[2019-06-05 04:04] VITALS: BP 148/92
[2019-06-05 07:46] LABS: WBC 7.2 thou/uL (4.0-11.0)
[2019-06-05 07:47] LABS: HEMATOCRIT 27.3 % (42.0-52.0); MCHC 32.7 g/dL (28.0-37.0); PLATELET COUNT 30 thou/uL (150-400); RDW 27.4 % (10.5-14.5)
[2019-06-05 07:49] LABS: HEMOGLOBIN 8.9 gm/dL (14.0-18.0)
[2019-06-05 07:59] VITALS: BP 160/91
[2019-06-05 10:23] LABS: ABSOLUTE NEUTROPHILS 5.7 thou/uL (1.4-8.2); METAMYELOCYTES 1 %; NUCLEATED RBCS 1 /100WBC
[2019-06-05 10:36] LABS: ANISOCYTOSIS 3+; OVALOCYTES FEW; POLYCHROMASIA OCCASIONAL
[2019-06-05 10:37] LABS: MACROCYTES 1+; MICROCYTES 1+
--- NOTE | 2019-06-05 18:04 | NUR ---
PT is A&ox3, pt is on o2 2.5 l/min/nc, pt's vs and o2sat are stable, RN has received DR order pt D/C TO [facility] today, RN has d/c pt's Rosario catheter , L arm picc line and deaccess pt's L chest port catheter before pt d/c , RN has giving report, pt was going to [facility] about 1040am.
[2019-06-09 20:06] LABS: ADENOVIRUS Negative (Negative); INFLUENZA B Negative (Negative); METAPNEUMOVIRUS Negative (Negative); PARAINFLUENZA 1 Negative (Negative); PARAINFLUENZA 2 Negative (Negative); PARAINFLUENZA 3 Negative (Negative); RHINOVIRUS Negative (Negative); RSV A Negative (Negative); RSV B Negative (Negative)
== END 2019-06-05 10:42 | DRG 871 ==
LOC: ER 19:55 → ICU 23:44 → EROBS 23:44 → ICU 05-28 01:14 → 3W 06-01 06:37
PROVIDERS: Emergency Medicine; Internal Medicine Hematology & Oncology; Nurse Practitioner Acute Care; Pediatrics; Specialist; ADMIT Internal Medicine
DX: A41.9 Sepsis, unspecified organism (principal); G92 Toxic encephalopathy; J18.9 Pneumonia, unspecified organism; R65.21 Severe sepsis with septic shock; J96.21 Acute and chronic respiratory failure with hypoxia; N17.9 Acute kidney failure, unspecified; D74.9 Methemoglobinemia, unspecified; D61.818 Other pancytopenia; C83.30 Diffuse large B-cell lymphoma, unspecified site; Z94.81 Bone marrow transplant status; J44.0 Chronic obstructive pulmonary disease with (acute) lower respiratory infection; E78.5 Hyperlipidemia, unspecified; I25.10 Atherosclerotic heart disease of native coronary artery without angina pectoris; D63.8 Anemia in other chronic diseases classified elsewhere; G47.33 Obstructive sleep apnea (adult) (pediatric); T37.1X5A Adverse effect of antimycobacterial drugs, initial encounter; B37.9 Candidiasis, unspecified; F17.210 Nicotine dependence, cigarettes, uncomplicated; R73.9 Hyperglycemia, unspecified; E87.6 Hypokalemia; E83.42 Hypomagnesemia; R13.10 Dysphagia, unspecified; Z82.49 Family history of ischemic heart disease and other diseases of the circulatory system; Z90.49 Acquired absence of other specified parts of digestive tract; Y92.89 Other specified places as the place of occurrence of the external cause; Z83.3 Family history of diabetes mellitus; Z95.5 Presence of coronary angioplasty implant and graft; Z79.01 Long term (current) use of anticoagulants; Z86.14 Personal history of Methicillin resistant Staphylococcus aureus infection; Z98.52 Vasectomy status; Z79.899 Other long term (current) drug therapy
CPT/HCPCS: 10078; 10203; 10879; 27000; 85076

== ENCOUNTER → 2019-11-15 | Outpatient (CLI) | payer OTHER ==
[~2019-11-15] MED LIST changes: +BREO ELLIPTA 11 EACH INH; +DAPSONE100 MG PO; +DEXAMETHASONE 44 M1 PO; +FLOMAX0.4 MG PO; +GABAPENTIN 100100 MG PO; +IPRATROPIU0.2 MG/1 M INH; +IRON325 PO; +K-DUR 20 MEQ T20 MEQ PO; +LEVAQUIN 500 M500 M4 PO; +MAG6464 MG PO; +MELATONIN5 M1 PO; +MUCUS ER600 M1 PO; +NICOTINE TRANSD21 M1; +PREDNISONE 10 M10 MG PO; +PROAIR HFA8.5 GM INH; +SYMBICORT160 MCG/4. INH; +TOPAMAX 100 MG100 MG PO; +TYLENOL EXTRA500 MG PO; +TYLENOL325 M1 PO; +VITAMINC500 PO; +ZOVIRAX800 MG PO; +[UNRECOGNIZED DRUG - CODE] IV PUSH
== END ==
LOC: RAD 15:02
DX: J98.4 Other disorders of lung (principal); J44.9 Chronic obstructive pulmonary disease, unspecified

== ENCOUNTER → 2020-02-16 | Outpatient (CLI) | payer OTHER | LOC: SJCVC 14:34 | DX: I25.10 Atherosclerotic heart disease of native coronary artery without angina pectoris (principal); I10 Essential (primary) hypertension; E78.00 Pure hypercholesterolemia, unspecified; Z72.0 Tobacco use ==

== ENCOUNTER → 2021-03-08 | Outpatient (CLI) | payer OTHER | LOC: RAD 13:59 | PROVIDERS: ATTEND Internal Medicine | DX: J44.9 Chronic obstructive pulmonary disease, unspecified (principal); R06.02 Shortness of breath ==

== ENCOUNTER → 2021-05-03 | Outpatient (CLI) | payer OTHER | LOC: SJCVC 14:43 | PROVIDERS: ATTEND Internal Medicine Cardiovascular Disease | DX: R06.00 Dyspnea, unspecified (principal); I11.9 Hypertensive heart disease without heart failure; I25.10 Atherosclerotic heart disease of native coronary artery without angina pectoris; E78.00 Pure hypercholesterolemia, unspecified; J44.9 Chronic obstructive pulmonary disease, unspecified; I73.9 Peripheral vascular disease, unspecified; F17.210 Nicotine dependence, cigarettes, uncomplicated; Z88.8 Allergy status to other drugs, medicaments and biological substances; Z90.49 Acquired absence of other specified parts of digestive tract; Z86.73 Personal history of transient ischemic attack (TIA), and cerebral infarction without residual deficits; Z79.899 Other long term (current) drug therapy; Z82.49 Family history of ischemic heart disease and other diseases of the circulatory system ==

== ENCOUNTER → 2021-07-16 | Outpatient (CLI) | payer OTHER | LOC: SJCVCIMAG 11:24 | PROVIDERS: ATTEND Internal Medicine Cardiovascular Disease | DX: I25.10 Atherosclerotic heart disease of native coronary artery without angina pectoris (principal); R06.00 Dyspnea, unspecified; E78.5 Hyperlipidemia, unspecified; J44.9 Chronic obstructive pulmonary disease, unspecified; I11.9 Hypertensive heart disease without heart failure; Z79.899 Other long term (current) drug therapy ==